=== PATIENT | male | born 1995 | race Two or more races ===

== ENCOUNTER 2025-03-26 19:09 | Emergency (ER) | payer MEDICAID ==
[~2025-03-26] VITALS: Ht 175.3 cm; Wt 81.0 kg
[2025-03-26 19:17] VITALS: TEMP 36.7; O2SAT 100
[2025-03-26] MEDS: FLUORESCEIN SODIUM 1MG/STRIP BOTHEYE ONE (19:45)
[2025-03-26] MEDS: TETRACAINE 0.5% OPHTH DROPS 4ML BOTHEYE ONE (19:45)
[2025-03-26] MEDS ORDERED: OCUFLX RIGHTEYE (20:37)
[2025-03-26 20:56] VITALS: BP 109/73; PULSE 60; RESP 20; O2SAT 100
== END 2025-03-26 20:59 | disposition home or self-care (01) ==
LOC: ER 19:09
DX: H10.31 Unspecified acute conjunctivitis, right eye (principal); Z79.899 Other long term (current) drug therapy
CPT/HCPCS: 99283